=== PATIENT | female | born 1970 | race Caucasian/White ===

== ENCOUNTER 2021-02-10 14:34 | Emergency (ER) | payer MEDICAID, OTHER ==
[~2021-02-10] VITALS: Ht 149.9 cm; Wt 130.8 kg
[2021-02-10 14:35] VITALS: BP 171/91
[2021-02-10] MEDS ORDERED: ATEN25TA PO (14:56)
[2021-02-10] MEDS ORDERED: MACR100C43 PO (17:05)
[2021-02-10] MEDS ORDERED: PYRI1TAB5 PO (17:05)
== END 2021-02-10 17:56 | disposition home or self-care (01) ==
LOC: M ED 14:34
DX: N30.00 Acute cystitis without hematuria (principal); Z98.84 Bariatric surgery status